=== PATIENT | female | born 1940 | race Caucasian/White ===

== ENCOUNTER 2020-12-20 16:16 | Emergency (ER) | payer MEDICARE, OTHER ==
[~2020-12-20] VITALS: Ht 162.6 cm; Wt 62.7 kg
[2020-12-20 16:40] VITALS: TEMP 97.2
[2020-12-20 17:55] LABS: BASO % 0.5 % (0.0-2.0); EOS # 0.2 (0.0-0.7); EOS % 2.7 % (0-4.0); GRAN # 3.7 (1.4-6.5); GRAN % 57.9 % (42.2-75.2); HEMOGLOBIN 11.9 g/dl (12.5-16.0); LYMPH # 1.6 (1.2-3.4); LYMPH % 24.5 % (20.0-51.0); MEAN CELL VOLUME 90 fl (80.0-100.0); MEAN CORPUSCULAR HEMOGLOBIN 29 pg (27.0-31.0); MEAN CORPUSCULAR HGB CONC 33 g/dl (33.0-37.0); MEAN PLATELET VOLUME 9.3 fl (7.4-10.4); MONO # 0.9 (0.1-0.6); MONO % 14.1 % (1.7-9.3); PLATELET COUNT 237 K/mm3 (130-400); RED BLOOD COUNT 4.05 M/mm3 (4.10-5.30); REDCELL DISTRIBUTION WIDTH-CV 13.5 % (11.5-14.5)
[2020-12-20 18:03] LABS: HEMATOCRIT 36.6 % (37.0-47.0)
[2020-12-20 18:06] LABS: ALBUMIN 3.6 gm/dL (3.5-5.0); BILIRUBIN,TOTAL 0.3 mg/dL (0.0-1.0); CALCIUM 9.3 mg/dL (8.4-10.2); CREATININE, serum 0.72 (0.52-1.25); POTASSIUM 3.5 mmol/L (3.4-5.0); TOTAL PROTEIN 6.5 gm/dL (6.4-8.2)
[2020-12-20] MEDS ORDERED: DIOVAN HCT 25 M1 TAB PO (19:03)
[2020-12-20 19:20] VITALS: BP 160/83; PULSE 79
== END 2020-12-20 19:20 | disposition home or self-care (01) ==
LOC: COL.ER 16:16
PROVIDERS: Physician Assistant
DX: R60.0 Localized edema (principal); I10 Essential (primary) hypertension; Z79.899 Other long term (current) drug therapy

== ENCOUNTER 2021-02-21 09:11 | Day surgery (SDC) | payer MEDICARE, OTHER ==
[~2021-02-21] VITALS: Ht 162.6 cm; Wt 57.8 kg
[2021-02-21] VITALS (321 sets, daily range): BP systolic 113–153; BP diastolic 56–82; PULSE 63–86; TEMP 98–98.9; O2SAT 94–100
[~2021-02-21 09:11] MED LIST: DIOVAN HCT 25 M1 TAB PO
[2021-02-21 10:31] LABS: HEMATOCRIT 38.9 % (37.0-47.0); MEAN CELL VOLUME 89 fl (80.0-100.0); MEAN CORPUSCULAR HEMOGLOBIN 30 pg (27.0-31.0); MEAN CORPUSCULAR HGB CONC 33 g/dl (33.0-37.0); MEAN PLATELET VOLUME 8.9 fl (7.4-10.4); PLATELET COUNT 235 K/mm3 (130-400); RED BLOOD COUNT 4.36 M/mm3 (4.10-5.30); REDCELL DISTRIBUTION WIDTH-CV 13.9 % (11.5-14.5)
[2021-02-21 10:40] LABS: PROTHROMBIN TIME 10.6 SECONDS (9.7-12.8)
[2021-02-21 10:44] LABS: CALCIUM 10.3 mg/dL (8.4-10.2); CREATININE, serum 0.8 mg/dL (0.57-1.11); POTASSIUM 3.7 mmol/L (3.5-4.5)
[2021-02-21 10:52] LABS: PARTIAL THROMBOPLASTIN TIME 30.7 SECONDS (26.0-37.0)
[2021-02-21] MEDS ORDERED: AMITIZA24 MCG PO (11:00)
--- NOTE | 2021-02-21 11:45 | NUR ---
Pt scheduled for 1145 outpatient procedure. This RN contacting MD as to whether pt may be take to lab to begin setup for procedure. MD currently unavailable; states he will contact RN when ready for patient to be taken to labor relations specialist.
[2021-02-21] MEDS ORDERED: LEVOXYL0.025 MG PO (11:58)
[2021-02-21] MEDS ORDERED: CELEBREX 200MG200 MG PO (11:59)
[2021-02-21] MEDS ORDERED: CELEXA 20MG20 MG/TAB PO (11:59)
[2021-02-21] MEDS ORDERED: PRIL40 PO (12:00)
[2021-02-21] MEDS ORDERED: DIOVAN HCT 25 M1 TAB PO (12:04)
[2021-02-21] MEDS ORDERED: CYMBALTA 60MG60 MG PO (12:06)
[2021-02-21] MEDS ORDERED: CYMBALTA 30MG30 MG PO (12:09)
[2021-02-21] MEDS ORDERED: ASPIRIN E.C. 8181 MG PO (12:10)
[2021-02-21] MEDS ORDERED: CRESTOR 10MG10 MG PO (12:11)
[2021-02-21] MEDS ORDERED: SINEQUAN 2525 MG/CAP PO (12:14)
[2021-02-21] MEDS ORDERED: [UNRECOGNIZED DRUG - OTHER] (12:16)
[2021-02-21] MEDS ORDERED: NORCO 325 MG-7.1 TAB PO (12:17)
--- NOTE | 2021-02-21 12:45 | NUR ---
SEE MERGE DOCUMENTATION FOR MEDICATION ADMINISTRATION TIMES AND INTRA/POST PROCEDURE SEDATION ASSESSMENTS
--- NOTE | 2021-02-21 14:00 | NUR ---
PT arrival from quality control lab tech. Pt is alert and oriented with out complaint. PT his hooked up to ICU monitoring and vitals are obtained. WNL. PT right radial catheter site inspected. There is a small hematoma noted under TR Band. Will start removal of air after two hours. PT is resting comfortable in bed and has call light in reach.
--- NOTE | 2021-02-21 17:06 | NUR ---
NAHOMY Holt notifed of pateints radial site hematoma growing proximal to TR band. hematoma perimeter marked. 3cc of air replaced to TR band. Jonathon spoke with Dr. Field and suggests to place gauze on area and wrap with robe wrap. Will reassess site in a couple hours.
--- NOTE | 2021-02-21 19:14 | NUR ---
PT REPORT GIVEN TO ZAHRA NEGRO.
--- NOTE | 2021-02-21 19:15 | NUR ---
Bedside report recieved from [facility]. Right radial artery access site confirmed with off going nurse and MARIANA wrap removed. Bruising minimal; outlined previously.
[2021-02-22] VITALS (339 sets, daily range): BP systolic 131–152; BP diastolic 65–80; PULSE 73–90; TEMP 98–98.6; O2SAT 85–100
--- NOTE | 2021-02-22 03:07 | NUR ---
Up to bathroom with minimal assist. Right radial artery access site continues to be unchanged; total of 6ml of air removed so far this shift. No bleeding and no further bruising noted. Denies needs at this time, no pain noted.
[2021-02-22] MEDS ORDERED: PLAVIX 75MG TAB75 MG PO (11:18)
--- NOTE | 2021-02-22 11:47 | NUR ---
PT right radial site is covered with a bandage. Dry clean and intact. IV from Left AC is removed without complication. PT verbalizes understanding of education. PT is ambulatory with stable gait. PT is discharged at 1147 with [facility].
== END 2021-02-22 11:47 | disposition home or self-care (01) ==
LOC: COL.CAR 09:11 → ICU 14:00 → COL.CAR 02-22 11:47
PROVIDERS: Internal Medicine Interventional Cardiology
DX: R94.39 Abnormal result of other cardiovascular function study (principal); R07.9 Chest pain, unspecified; R60.0 Localized edema; I25.10 Atherosclerotic heart disease of native coronary artery without angina pectoris; G47.33 Obstructive sleep apnea (adult) (pediatric); Z95.1 Presence of aortocoronary bypass graft; Z79.891 Long term (current) use of opiate analgesic; Z79.82 Long term (current) use of aspirin; Z79.899 Other long term (current) drug therapy; Z79.890 Hormone replacement therapy
CPT/HCPCS: OP; C1725; C1769; C1874; C1887; C9600; J0583; J1644; J2250; J3010; Q9967